=== PATIENT | male | born 1960 | race African-American/Black ===

== ENCOUNTER 2021-09-10 11:20 | Emergency (ER) | payer BC, MEDICAID ==
[~2021-09-10] VITALS: Ht 172.7 cm; Wt 79.0 kg
[2021-09-10 12:19] VITALS: BP 132/81
[2021-09-10] MEDS ORDERED: IBUP-2029 PO (14:44)
[2021-09-10] MEDS ORDERED: BO1 TP (14:44)
[2021-09-10] MEDS ORDERED: BACITRACIN ZINC OINT UDPKT TOP ONE (14:45)
== END 2021-09-10 15:20 | disposition home or self-care (01) ==
LOC: ER 11:20
DX: S50.12XA Contusion of left forearm, initial encounter (principal); V49.40XA Driver injured in collision with unspecified motor vehicles in traffic accident, initial encounter; Y93.89 Activity, other specified; Y92.89 Other specified places as the place of occurrence of the external cause; Y99.8 Other external cause status
CPT/HCPCS: 73090; 99283